=== PATIENT | female | born 1975 | race Caucasian/White ===

== ENCOUNTER 2021-12-09 06:10 | Day surgery (SDC) | payer OTHER ==
[2021-12-08 13:32] VITALS: BMI 34.2
[2021-12-09] MEDS ORDERED: fentaNYL Citrate/PF 100 MCG/2 ML SYRINGE ONE (08:08)
[2021-12-09] MEDS ORDERED: Dexmedetomidine 200 MCG/2 ML VIAL ONE (08:09)
[2021-12-09] MEDS ORDERED: PROPOFOL 200 MG/20 ML VIAL ONE (08:12)
[2021-12-09] MEDS ORDERED: Succinylcholine 200 MG/10 ml SYRINGE FS ONE (08:12)
[2021-12-09] MEDS ORDERED: Lidocaine 1% MPF 2 ML VIAL ONE (08:12)
[2021-12-09] MEDS ORDERED: Ondansetron PF 4 MG/2 ML Vial ONE (08:12)
[2021-12-09] MEDS ORDERED: Rocuronium Bromide 10 MG/ML (10ML VIAL) ONE (08:12)
[2021-12-09] MEDS ORDERED: Dexamethasone 20 MG/5 ML VIAL ONE (08:12)
[2021-12-09] MEDS ORDERED: methylPREDNISolone Acetate 40 mg/ml Vial ONE (08:24)
[2021-12-09] MEDS ORDERED: Fentanyl 100 MCG/2 ML VIAL ONE ×3 (08:51→09:30)
[2021-12-09] MEDS ORDERED: Morphine 2 MG/ML VIAL ONE (09:54)
[2021-12-09] MEDS ORDERED: Hydrocodone-Acetamin 15 ML UDCUP ONE (10:14)
== END 2021-12-09 11:10 | disposition home or self-care (01) ==
LOC: SDC 06:10
PROVIDERS: ATTEND Otolaryngology Plastic Surgery within the Head & Neck
PROC: 0CTQXZZ Resection of Adenoids, External Approach (ICD-10-PCS; principal; 2021-12-09)
PROC: 0CTPXZZ Resection of Tonsils, External Approach (ICD-10-PCS; principal; 2021-12-09)
DX: J35.03 Chronic tonsillitis and adenoiditis (principal); J02.9 Acute pharyngitis, unspecified; F17.200 Nicotine dependence, unspecified, uncomplicated; Z88.2 Allergy status to sulfonamides
CPT/HCPCS: 36415; 85014; 88304; J1100; J2270; J2405; J2704; J2920; J3010